=== PATIENT | female | born 1995 | race Caucasian/White ===

== ENCOUNTER 2023-07-24 11:06 | Day surgery (SDC) | payer BC, OTHER ==
--- NOTE | 2023-07-22 15:33 | P.HPOR ---
History of Present Illness H&P Date: 07/22/23 Subjective: This is a 28 year old female that presents today for initial evaluation regarding a left middle finger injury that occurred on 07/11/2023. She states she was cutting an avocado when she cut through the avocado and the knife cut the volar aspect of her middle finger. She was seen at urgent care where 2 stitches were placed. She was told to immediately follow-up with orthopedics due to not being able to flex the tip of the finger. She also states that she has some slight altered sensation in the finger. She denies any other areas of pain and denies any prior injury to this extremity in the past. 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 Physical Examination: LUE: AIN/PIN/Radial/Ulnar/Median motor intact. Radial/Ulnar/Median SILT. 2+/4 Radial/Ulnar pulses palpated. 5/5 APB, 5/5 FDI. 2cm oblique laceration at base of middle phalanx on volar surface with suture intact. Unable to actively flex the DIP joint. No flexion of DIP joint occurs with passive extension of the wrist. Sensation slightly diminished on both radial and ulnar boarders of volar middle finger distal to laceration. FDS appears partially intact, able to actively flex the PIP joint but with weakness. Imaging: X-Rays of the left hand 3V taken in office today demonstrate no abnormality. Impression: 1.) Left middle finger Zone 2 flexor tendon laceration, [place]. 2.) Possible left middle finger digital nerve laceration Plan: Diagnosis and treatment options were discussed with the patient. We discussed exam findings concerning for a left middle finger zone 2 flexor tendon laceration. I recommend surgical intervention with a left middle finger flexor tendon repair with possible digital nerve laceration repair. Risks and benefits of surgery including bleeding, infection, damage to surrounding tissue, need for further surgery and residual numbness were discussed and the patient wished to go forward with surgery. We discussed the need for therapy, splinting and the expected rehab course post operatively. She will require 6 weeks of right handed work only post operatively depending on the strength of the repair this could need to be extended. The patient was agreeable with this plan. -William Appiah DO Orthopedic Hand/Upper Extremity Surgeon Physical Examination Osteopathic Statement: *. No significant issues noted on an osteopathic structural exam other than those noted in the History and Physical/Consult.
[2023-07-23 08:36] VITALS: BMI 19.5
[~2023-07-24 11:06] MED LIST: HYDROmorphone 0.5 MG/0.5 ML SYRINGE IVP PRN; LIDOCAINE 1% (10MG/ML) FOR IV START INTRADERMA PRN; Pre Op ABX Message 1 EACH MISC MISCELLANE ONE
[2023-07-24] MEDS: LACTATED RINGERS 1,000 ML IV SCH (12:03)
[2023-07-24] MEDS: fentaNYL (PF) 50 MCG/ML 2 ML AMP IVP ONE (12:10)
[2023-07-24] MEDS: MIDAZOLAM 2 MG/2 ML VIAL IV PRN (12:10)
[2023-07-24 12:14] VITALS: TEMP 98.5
[2023-07-24] MEDS: DEXAMETHASONE SOD PHOSPHATE 4 MG/ML 1 ML VIAL IV ONE (12:26)
[2023-07-24] MEDS: ONDANSETRON 4 MG/2 ML VIAL IVP ONE (12:26)
--- NOTE | 2023-07-24 12:28 | P.ANPRN ---
Procedure Note - Anesthesia - Nerve Block Performed Left Supraclavicular Single Time Out Performed: Yes Date of Procedure: 07/24/23 Procedure Start Time: 12:09 Procedure Stop Time: 12:16 Location of Patient: PreOp Indication: Acute Post-Operative Pain, Requested by Surgeon Sedation Type: Sedate with meaningful contact maintained Preparation: Sterile Prep Position: Supine Needle Types: Pajunk Needle Gauge: 21 Ultrasound used to visualize needle placement: Yes Ultrasound used to observe medication spread: Yes Injectate: 0.5% Ropivacaine (see comment for volume) (30 ml + 4 mg Dexamethasone) Blood Aspirated: No Pain Paresthesia on Injection Noted: No Resistance on Injection: Normal Image Stored and Saved: Yes Events: Uneventful and Well Tolerated
[2023-07-24] MEDS ORDERED: MIDAZOLAM 2 MG/2 ML VIAL ONE (12:34)
[2023-07-24] MEDS ORDERED: DEXAMETHASONE SOD PHOSPHATE 4 MG/ML 1 ML VIAL ONE (12:34)
[2023-07-24] MEDS ORDERED: PROPOFOL 10 MG/ML 20 ML VIAL IV ONE (12:34)
[2023-07-24] MEDS ORDERED: ceFAZolin 1 GM/50 ML BAG (PMX) ONE (12:34)
[2023-07-24] MEDS ORDERED: ROPIVACAINE 5 MG/ML 30 ML VIAL ONE (12:34)
[2023-07-24] MEDS ORDERED: fentaNYL (PF) 50 MCG/ML 2 ML AMP ONE (12:34)
[2023-07-24] MEDS: SODIUM CHLORIDE 0.9% 100 ML with ceFAZolin 1,000 MG IV ONE (12:38)
[2023-07-24] MEDS: BACITRACIN ZINC 500 UNIT/GM OINT 28.4 GM TUBE TOPICAL ONE (13:42)
[2023-07-24 14:14] VITALS: BP 128/85; PULSE 84; RESP 16
--- NOTE | 2023-07-24 17:01 | P.OP ---
Date of Procedure: 07/24/23 Preoperative Diagnosis: 1.) Left middle finger Zone II flexor digitorum profundus tendon laceration Postoperative Diagnosis: 1.) Left middle finger Zone II flexor digitorum profundus tendon laceration 2.) Left middle finger Zone II flexor digitorum superficialialis tendon laceration, ulnar slip. Procedure(s) Performed: 1.) Left middle finger Zone II flexor digitorum profundus tendon laceration repair, [place] (57[address]). 2.) Left middle finger Zone II flexor digitorum superficialis ulnar slip excision (95430). Anesthesia: [facility], regional Surgeon: William Appiah [employer]: Sean Langford Estimated Blood Loss (ml): 0 Pathology: none sent Condition: stable Disposition: PACU Description of Procedure: This is a 28 year old female who sustained a laceration to the volar aspect of her left middle finger and presented with findings concerning for zone 2 flexor tendon injury and presents today for surgical intevention. Risks and benefits of surgery were discussed with the patient including bleeding, damage to surrounding tissue, infection, need for further surgery and the patient wished to proceed with surgical intervention. The patient was seen in the pre-operative area by myself. Consent and H&P were completed and updated. The correct extr emity was marked in the pre-operative area by myself and all other questions were answered. Operative Narrative: The patient was brought to the operating room by the department of anesthesia. They remained on the portable stretcher and a rolling hand table was brought to the side of the operative extremity. Pre-operative time out was performed indicating the correct patient, procedure and laterality. All in the room agreed. Pre-operative antibiotics were given prior to skin incision. The patient was then drifted off to sleep by the department of anesthesia. A nonst erile tourniquet was then applied to the operative extremity and the left upper extremity was then prepped and draped in normal sterile fashion. The operative extremity was the exsanguinated with an esmarch bandage and the tourniquet was inflated to 250mmHg. The site of the volar laceration on the middle finger at the level of the PIP flexion crease was extended both proximately and distally in a Yoli type fashion. Blunt dissection was taken down to the flexor tendon sheath. Both the radial and ulnar digital nerves were dissected and were found to be completely intact and unharmed. These were protected throughout the procedure. There appeared to be a transverse laceration of the FDP tendon just distal to the level of campers chiasm in zone two. There also appear to be a 100% laceration to the ulnar slip of the flexor digitorum superficialis. The radial slip of the flexor digitorum superficialis was completely intact and unharmed. Due to the very distal location of the FDS slip laceration and to make room for the profundus laceration repair the distal ulnar FDS tendon was excised with a 15 blade scalpel. The laceration was at the level of the distal portion of the A2 symone and involved the C1 and part of the A3 symone. The palm was milked and expression of the proximal portion of the lacerated FDP tendon was delivered to the distal portion of the A2 symone. This was held in the symone with a 22 gauge needle to prevent retraction. The distal stump of the FDP at the level of campers chiasm was easily identified at the level of the C2 symone. A 4-0 ethibond suture was then used to perform a 4 strand cruciate core suture of the two lacerated ends. This was followed by a locking running 6-0 prolene epitendinous stitch. All knots were buried in the laceration site. The finger was then flexed and extended an no triggering or gapping was appreciated. The wound was then irrigated and skin closure was performed with 4-0 nylon suture. A dorsal extension blocking splint was applied the the entire hand. The tourniquet was let down and the fingers hand immediate perfusion. The patient was then woken by the department of anesthesia and transferred to PACU in stable co ndition. Sean SANTANA was present for the case to assist in major portions of the procedure. William Appiah D.O. Orthopedic Hand/Upper Extremity Surgeon
== END 2023-07-24 14:25 | disposition home or self-care (01) ==
LOC: OR 11:06
PROVIDERS: ATTEND Orthopaedic Surgery Hand Surgery
DX: S66.123A Laceration of flexor muscle, fascia and tendon of left middle finger at wrist and hand level, initial encounter (principal); W26.0XXA Contact with knife, initial encounter
CPT/HCPCS: 26356; 26180; 81025; 64415; J2250; J1100; J2405; J0690 ×2; J3010; J2795; J2704